=== PATIENT | male | born 1955 | race African-American/Black ===

== ENCOUNTER 2018-10-04 07:35 | Emergency (ER) | payer BC ==
[2018-10-04 07:49] VITALS: BP 147/87; PULSE 91; TEMP 98.4; BMI 29.0
--- NOTE | 2018-10-04 08:21 | PDOC ---
Attending Attestation - Resident Resident Name: Jesse Amos - HPI HPI: 10/07/18 15:26 Pt presents to the ED complaining of atraumatic L chest, neck and shoulder pain. history of HTN and hyperlipidemia. Pain is worse with movements of the left arm and has been persistent for two weeks. PAtient presented today because the pain was worse and because his systolic blood pressure was 135 on his home machine. 10/07/18 15:27 10/07/18 15:27 - Physicial Exam PE: 10/07/18 15:28 Agree with resident exam. PAtient is alert and well appearing and in no acute distress. Lungs are clear. Heart regular rate and rhythm. Abdomen is soft, non tender and non distended. - Medical Decision Making 10/07/18 15:29 Pt presents to the Ed ocmplaining of a two week history of atypical chest pain. Labs and EKG are normal. HEART score is 2. Will discharge home with instructions to follow up with his PMD for further work up.
--- NOTE | 2018-10-04 08:37 | PDOC ---
History of Present Illness - General Chief Complaint: Chest Pain Stated Complaint: LT.Side CP/LT.Arm pain Time Seen by Provider: 10/04/18 08:09 History Source: Patient Exam Limitations: No Limitations - History of Present Illness Initial Comments: 10/04/18 08:32 Mr. Alvarez is a 63M with PMH of HTN and HLD presenting with left sided chest pain associated with left neck and left arm pain for the past 2 weeks, worsening over the past 3 days. Describes the pain as 7/10. Reports a stabbing type pain that radiates from his left neck down his left arm. Denies cough, vomiting, hematemesis, hemoptysis. Denies headache. Denies sore throat. Denies abdominal pain. Denies recent injury. Denies any prior episodes. PMH: HTN, HLD, no hx of cardiac disease FamHx: no hx of cardiac disease in family Meds: amlodipine, losartan Allergies: none 10/04/18 08:41 Timing/Duration: other (2 weeks) Severity: mild Modifying Factors: improves with: movement Associated Symptoms: reports: chest pain. denies: cough, diaphoresis, headaches , nausea/vomiting, shortness of breath Aspirin Received prior to arrival: Yes: no aspirin today Past History - Past Medical History Allergies/Adverse Reactions: Allergies Allergy/AdvReac Type Severity Reaction Status Date / Time No Known Allergies Allergy Verified 10/04/18 07:45 COPD: No HTN: Yes Hypercholesterolemia: Yes - Immunization History Immunization Up to Date: No - Suicide/Smoking/Psychosocial Hx Smoking History: Unknown if ever smoked Have you smoked in the past 12 months: No Information on smoking cessation initiated: No Hx Alcohol Use: No Drug/Substance Use Hx: No Review of Systems - Review of Systems Able to Perform ROS?: Yes Is the patient limited B[place]ian proficient: No Constitutional: Yes: See HPI. No: Chills, Fever, Weakness Respiratory: Yes: See HPI. No: Cough, Orthopnea, Shortness of Breath, SOB with Exertion, SOB at Rest, Stridor, Wheezing, Productive cough, Hemoptysis Cardiac (ROS): Yes: See HPI, Chest Pain, Chest Tightness. No: Edema, Irregular Heart Rate, Lightheadedness, Palpitations, Syncope ABD/GI: Yes: See HPI. No: Abdominal Distended, Nausea, Vomiting Musculoskeletal: Yes: See HPI. No: Back Pain Integumentary: Yes: See HPI. No: Bruising, Erythema, Rash Neurological: Yes: See HPI. No: Headache, Numbness, Paresthesia, Weakness Endocrine: No: Symptoms Reported Hematologic/Lymphatic: No: Symptoms Reported *Physical Exam - Vital Signs Last Vital Signs Temp Pulse Resp BP Pulse Ox 98.4 F 91 H 16 147/87 99 10/04/18 07:42 10/04/18 07:42 10/04/18 07:42 10/04/18 07:42 10/04/18 07:42 - Physical Exam General Appearance: Yes: Nourished, Appropriately Dressed HEENT: positive: EOMI, MICHAEL, Normal Voice, Pharynx Normal Neck: positive: Tender (left side tender on palpation ), Trachea midline, Tender lateral. negative: Rigid, Supple, Decreased range of motion, Stridor, Lymphadenopathy (L), Rigidity Respiratory/Chest: positive: Chest Tender (nonreproducible left sided chest pain ), Lungs Clear, Normal Breath Sounds. negative: Respiratory Distress, Accessory Muscle Use, Labored Respiration Cardiovascular: positive: Regular Rhythm, Regular Rate. negative: Edema, JVD, Murmur, Bradycardia, Tachycardia Vascular Pulses: Dorsalis-Pedis (R): 2+, Doralis-Pedis (L): 2+ Gastrointestinal/Abdominal: positive: Normal Bowel Sounds, Soft. negative: Tender Musculoskeletal: positive: Normal Inspection. negative: Decreased Range of Motion Extremity: positive: Normal Capillary Refill, Normal Inspection, Normal Range of Motion, Tender (left posterior arm tender on palpation ). negative: Coldness , Cyanosis, Delayed Capillary Refill, Pedal Edema, Swelling, Calf Tenderness Integumentary: positive: Normal Color, Dry, Warm Neurologic: positive: improvement leader II-XII NML intact, Fully Oriented, Alert, Normal Mood/ Affect, Normal Response, Motor Strength 5/5 ED Treatment Course - LABORATORY CBC & Chemistry Diagram: 10/04/18 08:32 10/04/18 08:32 - RADIOLOGY Radiology Studies Ordered: Category Date Time Status CHEST PA & LAT [RAD] Stat Radiology 10/04/18 08:28 Ordered Medical Decision Making - Medical Decision Making 10/04/18 08:40 This is a 63M presenting with left sided non-reproducible chest pain associated with left sided neck pain and left posterior arm pain worse on palpation, started 2 weeks ago and worsening the past 3 days. No respiratory distress. EKG obtained at triage shows normal sinus rhythm, HR 82, no ST elevation or depression, normal axis and intervals. We will obtain CBC, CMP, CXR, and cardiac panel to rule out cardiac chest pain. If negative, concern for musculoskeletal pain. 10/04/18 09:15 CXR shows no acute pathology. 10/04/18 09:44 Pt stable. Pain improved. 10/04/18 09:45 Laboratory Tests 10/04/18 10/04/18 08:32 08:32 WBC 9.4 Hgb 14.2 Hct 42.5 Plt Count 125 L BUN 12.1 Creatinine 1.0 Random Glucose 117 H Creatine Kinase 673 H Creatine Kinase Index 0.5 CK-MB (CK-2) 3.8 H Troponin I < 0.02 Patient advised to f/u with pmd *DC/Admit/Observation/Transfer Diagnosis at time of Disposition: Left-sided chest pain - Discharge Dispostion Disposition: HOME Condition at time of disposition: Stable Decision to Admit order: No - Referrals Referrals: Anant Nieto MD [Primary Care Provider] - - Patient Instructions Printed Discharge Instructions: DI for Chest Pain Additional Instructions: Please return to the emergency department with any new or worsening symptoms or concerns. Please follow up with your primary care physician within 72 hours. - Post Discharge Activity
[2018-10-04 08:53] LABS: BASO % 0.8 % (0-2.0); EOS % 1.5 % (0-4.5); HEMATOCRIT 42.5 % (35.4-49); HEMOGLOBIN 14.2 GM/dL (11.7-16.9); LYMPH % 41.1 % (8-40); MCH 30.1 pg (25.7-33.7); MCHC 33.4 g/dl (32.0-35.9); MEAN CELL VOLUME 90.1 fl (80-96); MEAN PLT VOLUME 11.7 fl (7.5-11.1); MONO % 7.6 % (3.8-10.2); PLATELET COUNT 125 K/MM3 (134-434); RBC 4.72 M/mm3 (4.00-5.60); RDW 14.1 % (11.9-15.9)
[2018-10-04 09:11] LABS: WHITE BLOOD COUNT 9.4 K/mm3 (4.0-10.0)
[2018-10-04 09:21] LABS: ALBUMIN 3.4 g/dl (3.4-5.0); ALK PHOS 57 U/L (45-117); ANION GAP 4 MMOL/L (8-16); BILIRUBIN,TOTAL 0.4 mg/dL (0.2-1); BLOOD UREA NITROGEN 12.1 mg/dL (7-18); CALCIUM 8.8 mg/dL (8.5-10.1); CHLORIDE 106 mmol/L (98-107); CO2 26 mmol/L (21-32); GLUCOSE,RANDOM 117 mg/dL (74-106); POTASSIUM 4.1 mmol/L (3.5-5.1); SGOT/AST 24 U/L (15-37); SGPT/ALT 36 U/L (13-61); SODIUM 137 mmol/L (136-145); TOT PROT 6.7 g/dl (6.4-8.2)
[2018-10-04] MEDS ORDERED: amLODIPine BESYLATE 5 MG TABLET (FP) PO ONE (10:08)
[2018-10-04] MEDS ORDERED: amLODIPine BESYLATE 5 MG TABLET (FP) ONE (10:10)
--- NOTE | 2018-10-04 13:51 | EKG ---
Test Reason : Blood Pressure : / mmHG Vent. Rate : 082 BPM Atrial Rate : 082 BPM P-R Int : 170 ms QRS Dur : 080 ms QT Int : 348 ms P-R-T Axes : 067 037 048 degrees QTc Int : 406 ms NORMAL SINUS RHYTHM NORMAL ECG WHEN COMPARED WITH ECG OF 25-MAR-2007 07:02, QT HAS LENGTHENED Confirmed by MD PEPPER, MILAN ([id number]) on 10/04/2018 1:51:03 PM Referred By: Confirmed By:MILAN PABON MD
== END 2018-10-04 10:20 | disposition home or self-care (01) ==
LOC: JER 07:35
DX: R07.9 Chest pain, unspecified (principal); I10 Essential (primary) hypertension; E78.5 Hyperlipidemia, unspecified
CPT/HCPCS: 36415; 71046-TC-FY; 80053; 82550; 82553; 84484; 85025; 93005; 93010; 99282-25

== ENCOUNTER 2019-12-15 05:07 | Day surgery (SDC) | payer OTHER ==
[2019-12-14 18:00] VITALS: BMI 31.4
[2019-12-15] MEDS ORDERED: PROPOFOL 20 ML ONE ×2 (09:25)
[2019-12-15] MEDS ORDERED: MIDAZOLAM HCL 2 MG/2 ML SINGLE DOSE VIAL ONE (09:25)
--- NOTE | 2019-12-15 09:25 | HP ---
Admitting History and Physical - Admission Chief Complaint: left lower arm mass History of Present Illness: 64 y.o. male with slowly growing left forearm soft tissue mass History Source: Patient - Smoking History Smoking history: Never smoked Have you smoked in the past 12 months: No - Alcohol/Substance Use Hx Alcohol Use: No Home Medications - Allergies Allergies/Adverse Reactions: Allergies Allergy/AdvReac Type Severity Reaction Status Date / Time No Known Allergies Allergy Verified 12/15/19 09:02 - Home Medications Home Medications: Ambulatory Orders Amlodipine Besylate [Norvasc -] 20 mg PO DAILY 12/14/19 Aspirin [Aspirin EC] 81 mg PO DAILY 12/14/19 Atorvastatin Ca [Lipitor] 10 mg PO DAILY 12/14/19 Review of Systems - Review of Systems Constitutional: reports: No Symptoms Eyes: reports: No Symptoms HENT: reports: No Symptoms Neck: reports: No Symptoms Cardiovascular: reports: No Symptoms Respiratory: reports: No Symptoms Gastrointestinal: reports: No Symptoms Integumentary: reports: Lump Physical Examination Vital Signs: Vital Signs Temperature 97.4 F L 12/15/19 09:01 Pulse Rate 68 12/15/19 09:01 Respiratory Rate 20 12/15/19 09:01 Blood Pressure 139/80 12/15/19 09:01 O2 Sat by Pulse Oximetry (%) 99 12/15/19 09:01 Constitutional: Yes: Well Nourished, No Distress HENT: Yes: Normocephalic Neck: Yes: Supple Cardiovascular: Yes: Regular Rate and Rhythm Respiratory: Yes: CTA Bilaterally Gastrointestinal: Yes: Normal Bowel Sounds, Soft Musculoskeletal: Yes: Other (5 x 4 cm mass at ventral aspect of the left mid forearm, soft, movable, with well-defined borders) Problem List - Problems (1) Mass of left forearm Assessment/Plan: Excision biopsy of left forearm mass Code(s): R22.32 - LOCALIZED SWELLING, MASS AND LUMP, LEFT UPPER LIMB
[2019-12-15] MEDS ORDERED: SUCCINYLCHOLINE CHLORIDE 200 MG/10 ML SYRINGE ONE (09:27)
[2019-12-15] MEDS ORDERED: ceFAZolin SODIUM 1 GM VIAL IVPB ONE (09:55)
[2019-12-15] MEDS ORDERED: LIDOCAINE 1%/EPI 1:100000 (50 ML MULTI DOSE VIAL) INF ONE (10:03)
--- NOTE | 2019-12-15 10:32 | OP ---
Operative Note - Note: Operative Date: 12/15/19 Pre-Operative Diagnosis: left forearm mass Operation: Excision, left forearm mass Findings: 5 x 4 cm fibrofatty mass Post-Operative Diagnosis: Same as Pre-op Surgeon: Gokul Argueta Anesthesia: Local, MAC Specimens Removed: lipoma Estimated Blood Loss (mls): 1 Operative Report Dictated: Yes
[2019-12-15 11:40] VITALS: TEMP 96.8
[2019-12-15 12:26] VITALS: BP 129/80; PULSE 60
[2019-12-15] MEDS ORDERED: oxyCODONE HCL 5 MG TABLET PO PRN (12:34)
[2019-12-15] MEDS ORDERED: ONDANSETRON 4 MG/2 ML VIAL IVPUSH PRN (12:34)
--- NOTE | 2019-12-16 10:59 | OP ---
DATE OF OPERATION: 12/15/2019 PROCEDURE: Excision biopsy of left forearm mass. PREOPERATIVE DIAGNOSIS: Left forearm mass. POSTOPERATIVE DIAGNOSIS: Left forearm mass. SURGEON: Gokul Argueta MD ANESTHESIA: Local with sedation. FINDINGS AND PROCEDURE: This is a 64-year-old male who presents with a slowly growing soft tissue mass of the left forearm at the ventral aspect which is about 5 x 4 cm in size. The patient was advised excisional biopsy of the mass, and consent was obtained after discussing the risks, benefits, and alternatives to the procedure. Patient was brought to the operating room and placed in supine position with the left arm placed on hand table. Intravenous sedation was given by the anesthesia team. The left forearm was then prepped and draped in the usual sterile fashion. Using lidocaine 1% with epinephrine, local anesthesia was then administered to the proposed incision site. A 3.5-cm vertical incision over the mass was made using scalpel blade No. 15, the dissection carried down to the subcutaneous tissue. Further dissection using Bovie cautery was done until the fibrofatty mass was completely excised down to its attachment to the superficial fascia. Hemostasis was achieved using Bovie cautery. The wound was closed with interrupted Polysorb 3-0 suture for the dermis and continuous Biosyn 4-0 suture for the subcuticular layer. The wound closure was reinforced with Steri-Strips, then covered with pressure dressing. The patient was transferred to postanesthesia care unit in satisfactory condition. ESTIMATED BLOOD LOSS: About 1 mL. WOUND CLASS: Clean. Patient received a gram of Ancef prior to the start of the procedure. Eder [id number]
--- NOTE | 2019-12-20 17:58 | PATH ---
Surgical Pathology Report Patient Name: SUSHMA GARCIA Med. Rec. #: [id number] /Age/Gender: 1955 (Age: 64) / M Account: [id number] Location: [facility] Taken: 12/15/2019 Received: 12/15/2019 Reported: 12/20/2019 Physicians: Gokul Argueta M.D. Specimen(s) Received LEFT FOREARM Clinical History Left forearm soft tissue mass Final Diagnosis FOREARM MASS, LEFT, EXCISION: MATURE FIBROADIPOSE TISSUE CONSISTENT WITH LIPOMA. Electronically Signed Jackie Ramirez M.D. Gross Description Received in formalin labeled "left forearm mass," is a 4.5 x 3.5 x 1.0 cm portion of yellow, lobulated adipose tissue. Sectioning reveals homogeneous yellow, smooth fat. No areas of hemorrhage or necrosis are identified. Chief Wharfinger sections are submitted in 2 cassettes. /12/15/2019 saudi/12/15/2019
== END 2019-12-15 12:27 | disposition home or self-care (01) ==
LOC: JASU-SURG 05:07
PROVIDERS: ATTEND Surgery
PROC: 0JBH0ZZ Excision of Left Lower Arm Subcutaneous Tissue and Fascia, Open Approach (ICD-10-PCS; principal; 2019-12-15 10:00)
DX: D21.12 Benign neoplasm of connective and other soft tissue of left upper limb, including shoulder (principal)
CPT/HCPCS: 88304-TC; 94760